=== PATIENT | male | born 1980 | race Native Hawaiian/Other Pacific Islander ===

== ENCOUNTER 2022-10-22 09:50 | Outpatient (CLI) | payer OTHER ==
[~2022-10-22] VITALS: Ht 180.3 cm; Wt 95.3 kg
== END 2022-10-22 22:52 | disposition home or self-care (01) ==
LOC: MRI 09:50
PROVIDERS: ATTEND Orthopaedic Surgery Adult Reconstructive Orthopaedic Surgery
DX: S46.111A Strain of muscle, fascia and tendon of long head of biceps, right arm, initial encounter (principal); M25.511 Pain in right shoulder; S43.431A Superior glenoid labrum lesion of right shoulder, initial encounter; M75.101 Unspecified rotator cuff tear or rupture of right shoulder, not specified as traumatic; M13.819 Other specified arthritis, unspecified shoulder; Y92.89 Other specified places as the place of occurrence of the external cause
CPT/HCPCS: A9576